=== PATIENT | male | born 1965 | race Caucasian/White ===

== ENCOUNTER → 2018-08-25 10:27 | Outpatient (CLI) | payer OTHER, SELFPAY ==
[2018-08-25 12:11] LABS: Alanine Aminotransferase 35 IU/L (21-72); Albumin 4.3 g/dL (3.5-5.0); Albumin Globulin Ratio 1.4 (1.0-2.8); Alkaline Phosphatase 46 U/L (38-126); Aspartate Aminotransferase 25 IU/L (17-59); BUN Creatinine Ratio 22.5 (6-22); Bilirubin Total 0.6 mg/dL (0.2-1.3); Blood Urea Nitrogen 18 mg/dL (9-20); Calcium 9.3 mg/dL (8.4-10.2); Carbon Dioxide 24 mmol/L (22-32); Chloride 107 mmol/L (98-107); Cholesterol 162 mg/dL (140-199); Estimated Glomerular Filt Rate > 60.0 mL/min (>60); Glucose 89 mg/dL (70-100); HDL Cholesterol 35 mg/dL (40-60); HEMOLYSIS < 15 (0-50); LDL Cholesterol Calculated 93 mg/dL (<100); Potassium 3.9 mmol/L (3.4-5.1); Sodium 141 mmol/L (137-145); Total Protein 7.3 g/dL (6.3-8.2); Triglycerides 170 mg/dL (35-150)
[2018-08-25 12:36] LABS: Thyroid Stimulating Hormone 0.94 uIU/mL (0.47-4.68)
[2018-08-25 12:40] LABS: Prostate Specific Antigen Scrn 1.17 ng/mL (0.1-4.0)
[2018-08-28 16:27] LABS: Testosterone Free 44.8 pg/mL (35.0-155.0); Testosterone Total 261 ng/dL (250-1100)
== END ==
PROVIDERS: PCP Acupuncturist; Visit Provider Acupuncturist
DX: Z00.00 Encounter for general adult medical examination without abnormal findings (principal); Z12.5 Encounter for screening for malignant neoplasm of prostate
CPT/HCPCS: 36415; 80053; 80061; 83735; 84402; 84403; 84443; G0103

== ENCOUNTER → 2018-12-03 12:17 | Outpatient (CLI) | payer OTHER, SELFPAY | PROVIDERS: Family Provider Acupuncturist; PCP Acupuncturist; Visit Provider Acupuncturist | DX: E29.1 Testicular hypofunction (principal) | CPT/HCPCS: 36415; 84403 ==

== ENCOUNTER 2019-11-29 21:25 | Emergency (ER) | payer OTHER, SELFPAY ==
--- NOTE | 2019-11-29 21:28 | DI.RAD.S_ITS ---
PROCEDURE: XR FOOT LT MIN 3V INDICATIONS: Stepped on nail, eval for fracture/foreign body TECHNIQUE: Pre-views of the foot were acquired. COMPARISON: None. FINDINGS: Bones: No fractures or dislocations. No suspicious bony lesions. Soft tissues: No tibiotalar joint effusion. Achilles tendon appears normal. IMPRESSION: No gross acute left foot fracture or dislocation. No radiopaque foreign body is seen. Dictated by: Yimi Becker M.D. on 11/29/2019 at 21:41 Approved by: Yimi Becker M.D. on 11/29/2019 at 21:46
[2019-11-29 21:29] VITALS: BP 142/90; PULSE 78; RESP 20; TEMP 36.8; O2SAT 97
[2019-11-29] MEDS: TET,DIPH,PERTUSS(ACELL),VAC/PF 0.5 ML SYRINGE IM (21:41)
--- NOTE | 2019-11-29 21:41 | ED_ITS ---
HPI - Wound/Laceration General Chief Complaint: Wound/Laceration Stated Complaint: stepped on nail with left foot Time Seen by Provider: 11/29/19 21:28 Source: patient Mode of arrival: Ambulatory Limitations: no limitations History of Present Illness HPI narrative: 53-year-old male here for evaluation of a wound that he sustained when he stepped on a nail with his left foot. He was wearing tennis shoes and socks at the time. He did try to wash it out and tried to ?make it bleed? prior to arrival. He does not know when his last tetanus shot was. Has had pain with walking. Related Data Previous Rx's Medication Instructions Recorded cephalexin [Keflex] 500 mg PO QID 5 Days #20 cap 11/29/19 Allergies Allergy/AdvReac Type Severity Reaction Status Date / Time No Known Drug Allergies Allergy Verified 11/29/19 21:52 Review of Systems Constitutional Constitutional: Denies fever(s) Musculoskeletal Musculoskeletal: Denies tingling Comments: Left foot pain Integumentary/Breasts Comments: Puncture wound vital left foot Neurologic Neurologic: Denies tingling and Denies paresthesias Hematologic/Lymphatic Hematologic/Lymphatic: Denies easy bleeding and Denies easy bruising Patient History Medical History Healthy adult (Acute) Social History marital status: Exam Initial Vital Signs Initial Vital Signs: Vital Signs Temperature 98.3 F 11/29/19 21:29 Pulse Rate 78 11/29/19 21:29 Respiratory Rate 20 11/29/19 21:29 Blood Pressure 142/90 H 11/29/19 21:29 Pulse Oximetry 97 11/29/19 21:29 Const General: cooperative and healthy appearing Cardio Pulses: dorsalis pedis present on the left Skin Other: Patient with 1 very small puncture wound located just proximal to the MTP joint of the 4th toe. No active bleeding. Neuro Sensory Exam: no sensory deficits noted Extrem Other: Left foot unremarkable except for puncture wound to bottom of left foot. Course Orders Ordered: ED Orders 11/29/19 21:28 XR foot LT min 3V Stat Discontinued Medications Cephalexin HCl (Keflex) 500 mg PO NOW ONE Stop: 11/29/19 21:47 Diphtheria/Tetanus/Acell Pertussis (Adacel) 0.5 ml IM .ONCE ONE Stop: 11/29/19 21:29 Last Admin: 11/29/19 21:41 Dose: 0.5 ml Documented by: CHRISTOPHER Vital Signs Vital signs: Vital Signs - 8 hr 11/29/19 21:29 Temperature 98.3 F Pulse Rate 78 Respiratory Rate 20 Blood Pressure 142/90 H Pulse Oximetry 97 MDM - Wound/Laceration Imaging Data Extremity x-ray #1: Radiologist's Impression: [address] [address] XRay Report Signed Patient: Chavo Frausto [facility]#: [id number] : 1965Acct:[id number] Age/Sex: 53 / MDate of Service: 11/29/19 Loc: ED Accession Number: [id number] Procedure: XR foot LT min 3V Ordering Provider: Josue Welch D.O. PROCEDURE: XR FOOT LT MIN 3V INDICATIONS: Stepped on nail, eval for fracture/foreign body TECHNIQUE: Pre-views of the foot were acquired. COMPARISON: None. FINDINGS: Bones: No fractures or dislocations. No suspicious bony lesions. Soft tissues: No tibiotalar joint effusion. Achilles tendon appears normal. IMPRESSION: No gross acute left foot fracture or dislocation. No radiopaque foreign body is seen. Dictated by: Yimi Becker M.D. on 11/29/2019 at 21:41 Approved by: Yimi Becker M.D. on 11/29/2019 at 21:46 [facility] Narrative Medical decision making narrative: Neurovascular intact, tetanus was updated, no fractures or foreign bodies noted on x-ray. Given the nature of the injury the fact that it went through his shoe and sock and was a puncture wound will start on antibiotics. First dose was given in the ER. Remainder of the course was electronically transmitted to the pharmacy of his choice. He was given care instructions and return precautions. He expressed understanding and agreement. Discharge Plan Departure Patient Disposition: Home Clinical Impression: Puncture wound of foot, left Qualifiers: Encounter type: initial encounter Qualified Code(s): S91.332A - Puncture wound without foreign body, left foot, initial encounter Instructions: DI for Puncture Wound Activity Restrictions/Additional Instructions: Your tetanus was updated this evening. You were given your 1st dose of antibiotics. The remainder of the course of antibiotics was electronically transmitted to [facility]. You can shower like normal. You can walk like normal. Return to the emergency department for any new or worsening symptoms Prescriptions: New cephalexin [Keflex] 500 mg capsule 500 mg PO QID 5 Days Qty: 20 RF: 0 Referrals: Melissa Jimenez ND [Primary Care Provider] -
[2019-11-29] MEDS: cephALEXin 250 MG CAPSULE 500 MG PO (21:52)
== END 2019-11-29 22:15 | disposition home or self-care (01) ==
PROVIDERS: Emergency Provider Emergency Medicine; Family Provider Acupuncturist; PCP Acupuncturist
DX: S91.332A Puncture wound without foreign body, left foot, initial encounter (principal); W22.8XXA Striking against or struck by other objects, initial encounter; Z23 Encounter for immunization
CPT/HCPCS: 73630; 90471; 99283; 99284; 90715

== ENCOUNTER → 2020-06-07 08:23 | Outpatient (CLI) | payer OTHER, SELFPAY ==
[2020-06-07 09:29] LABS: Add Manual Diff / Slide Review NO; Basophils Absolute Auto 100 /uL (0-100); Basophils Percent Auto 1.2 % (0-2); Eosinophils Absolute Auto 100 /uL (0-450); Eosinophils Percent Auto 2.2 % (2-4); Hematocrit 43.3 % (41-53); Hemoglobin 14.9 g/dL (13.5-17.5); Lymphocytes Absolute Auto 1900 /uL (1100-4500); Lymphocytes Percent Auto 32.1 % (25-40); Mean Corpuscular HGB Conc 34.4 % (30-36); Mean Corpuscular Volume 87.2 fL (80-100); Monocytes Absolute Auto 400 /uL (0-900); Neutrophils Absolute Auto 3300 /uL (1500-7000); Neutrophils Percent Auto 57.5 % (50-75); Platelet Count 143 X10^3/uL (150-400); Red Blood Cell Count 4.97 X10^6/uL (4.5-5.9); Red Cell Distribution Width 13.7 % (11.6-14.8); White Blood Cell Count 5.8 X10^3/uL (4.5-11.0)
[2020-06-07 10:26] LABS: Alanine Aminotransferase 30 IU/L (<50); Albumin 4.5 g/dL (3.5-5.0); Albumin Globulin Ratio 1.7 (1.0-2.8); Alkaline Phosphatase 44 U/L (38-126); Aspartate Aminotransferase 25 IU/L (17-59); Bilirubin Total 0.9 mg/dL (0.2-1.3); Blood Urea Nitrogen 20 mg/dL (9-20); Calcium 9.5 mg/dL (8.4-10.2); Carbon Dioxide 29 mmol/L (22-32); Chloride 104 mmol/L (98-107); Cholesterol 205 mg/dL (140-199); Estimated Glomerular Filt Rate > 60.0 mL/min (>60); Globulin 2.6 g/dL (1.7-4.1); Glucose 98 mg/dL (70-100); HDL Cholesterol 44 mg/dL (40-60); HEMOLYSIS < 15 (0-50); LDL Cholesterol Calculated 140 mg/dL (<100); Potassium 4.5 mmol/L (3.4-5.1); Sodium 138 mmol/L (137-145); Total Protein 7.1 g/dL (6.3-8.2); Triglycerides 107 mg/dL (35-150)
[2020-06-07 10:42] LABS: Thyroid Stimulating Hormone 1.43 uIU/mL (0.47-4.68)
[2020-06-07 10:55] LABS: Prostate Specific Antigen Scrn 1.29 ng/mL (0.1-4.0)
[2020-06-07 10:57] LABS: Testosterone > 2160 ng/dL (71.8-623)
== END ==
PROVIDERS: Family Provider Acupuncturist; PCP Acupuncturist; Referring Provider Acupuncturist; Visit Provider Acupuncturist
DX: E29.1 Testicular hypofunction (principal)
CPT/HCPCS: 36415; 80053; 80061; 84403; 84443; 85025; G0103

== ENCOUNTER → 2020-08-12 12:07 | Outpatient (CLI) | payer OTHER, SELFPAY ==
[2020-08-12] MEDS: COVID-19 VACC(MODERNA-1)/PF 100 MCG/0.5 ML VIAL IM (12:13)
== END ==
PROVIDERS: Family Provider Acupuncturist; PCP Acupuncturist; Visit Provider Internal Medicine
DX: Z23 Encounter for immunization (principal)
CPT/HCPCS: 0011A; 91301

== ENCOUNTER → 2020-09-09 11:59 | Outpatient (CLI) | payer OTHER, SELFPAY ==
[2020-09-09] MEDS: COVID-19 VACC #2, MRNA(MOD) 100 MCG/0.5 ML VIAL IM (12:02)
== END ==
PROVIDERS: Family Provider Acupuncturist; PCP Acupuncturist; Visit Provider Internal Medicine
DX: Z23 Encounter for immunization (principal)
CPT/HCPCS: 0012A; 91301

== ENCOUNTER → 2020-09-14 08:16 | Outpatient (CLI) | payer OTHER, SELFPAY ==
[2020-09-14 09:42] LABS: Hematocrit 42.5 % (41-53); Hemoglobin 14.8 g/dL (13.5-17.5); Mean Corpuscular HGB Conc 34.7 % (30-36); Mean Corpuscular Volume 86.2 fL (80-100); Platelet Count 163 X10^3/uL (150-400); Red Blood Cell Count 4.93 X10^6/uL (4.5-5.9); Red Cell Distribution Width 13.1 % (11.6-14.8); White Blood Cell Count 5.6 X10^3/uL (4.5-11.0)
[2020-09-14 10:32] LABS: Testosterone 259 ng/dL (71.8-623)
== END ==
PROVIDERS: Family Provider Acupuncturist; PCP Acupuncturist; Referring Provider Acupuncturist; Visit Provider Acupuncturist
DX: E29.1 Testicular hypofunction (principal)
CPT/HCPCS: 36415; 84403; 85027

== ENCOUNTER → 2020-09-29 12:18 | Outpatient (CLI) | payer OTHER, SELFPAY ==
[2020-09-29 13:04] LABS: Reticulocyte Count, Percent 0.9 % (0.87-2.60)
[2020-09-29 13:14] LABS: Add Manual Diff / Slide Review NO; Basophils Absolute Auto 100 /uL (0-100); Basophils Percent Auto 1.4 % (0-2); Eosinophils Absolute Auto 300 /uL (0-450); Eosinophils Percent Auto 6.2 % (2-4); Hematocrit 42.9 % (41-53); Hemoglobin 14.7 g/dL (13.5-17.5); Lymphocytes Absolute Auto 1700 /uL (1100-4500); Lymphocytes Percent Auto 32.7 % (25-40); Mean Corpuscular HGB Conc 34.3 % (30-36); Mean Corpuscular Hemoglobin 29.6 PG (26-34); Mean Corpuscular Volume 86.5 fL (80-100); Monocytes Absolute Auto 400 /uL (0-900); Monocytes Percent Auto 7.9 % (3-14); Neutrophils Absolute Auto 2700 /uL (1500-7000); Neutrophils Percent Auto 51.8 % (50-75); Platelet Count 170 X10^3/uL (150-400); Red Blood Cell Count 4.96 X10^6/uL (4.5-5.9); Red Cell Distribution Width 12.9 % (11.6-14.8); White Blood Cell Count 5.2 X10^3/uL (4.5-11.0)
[2020-09-29 13:19] LABS: Alanine Aminotransferase 471 IU/L (<50); Albumin 4.2 g/dL (3.5-5.0); Albumin Globulin Ratio 1.3 (1.0-2.8); Alkaline Phosphatase 123 U/L (38-126); Aspartate Aminotransferase 138 IU/L (17-59); Bilirubin Conjugated 2.2 md/dL (0.0-0.3); Bilirubin Total 5.2 mg/dL (0.2-1.3); Bilirubin Unconjugated 1.3 mg/dL (0.0-1.1); Globulin 3.2 g/dL (1.7-4.1); HEMOLYSIS < 15 (0-50); Total Protein 7.4 g/dL (6.3-8.2)
[2020-09-30 09:23] LABS: Alanine Aminotransferase 427 IU/L (<50); Albumin 4.4 g/dL (3.5-5.0); Albumin Globulin Ratio 1.6 (1.0-2.8); Alkaline Phosphatase 133 U/L (38-126); Aspartate Aminotransferase 152 IU/L (17-59); Bilirubin Conjugated 0.9 md/dL (0.0-0.3); Bilirubin Unconjugated 1.4 mg/dL (0.0-1.1); Globulin 2.7 g/dL (1.7-4.1); HEMOLYSIS < 15 (0-50); Total Protein 7.1 g/dL (6.3-8.2)
[2020-09-30 10:34] LABS: Hepatitis B Surface Antigen NEGATIVE s/c (NEGATIVE)
[2020-09-30 10:51] LABS: Hep C Virus Ab w/Reflex Quant NEGATIVE s/c (NEGATIVE)
[2020-10-01 02:15] LABS: Hepatitis A Antibody IgM Negative (Negative)
[2020-10-01 07:14] LABS: Hepatitis B Core IgM Negative (Negative)
== END ==
PROVIDERS: Family Provider Acupuncturist; PCP Acupuncturist; Referring Provider Acupuncturist; Visit Provider Acupuncturist
DX: R17 Unspecified jaundice (principal)
CPT/HCPCS: 36415; 80076; 85025; 85045; 86705; 86709; 86803; 87340

== ENCOUNTER → 2020-10-08 08:04 | Outpatient (CLI) | payer OTHER, SELFPAY ==
[2020-10-08 09:42] LABS: Alanine Aminotransferase 147 IU/L (<50); Albumin 4.1 g/dL (3.5-5.0); Albumin Globulin Ratio 1.5 (1.0-2.8); Alkaline Phosphatase 96 U/L (38-126); Aspartate Aminotransferase 45 IU/L (17-59); Bilirubin Total 1.3 mg/dL (0.2-1.3); Bilirubin Unconjugated 0.8 mg/dL (0.0-1.1); Globulin 2.7 g/dL (1.7-4.1); HEMOLYSIS < 15 (0-50); Total Protein 6.8 g/dL (6.3-8.2)
[2020-10-09 10:07] LABS: Immunoglobulin G, Quantitative 969 mg/dL (603-1613)
[2020-10-11 09:39] LABS: Smooth Muscle Antibody 8 Units (0-19)
[2020-10-11 15:08] LABS: ANA Screen, IFA Negative (.)
== END ==
PROVIDERS: Family Provider Acupuncturist; PCP Acupuncturist; Referring Provider Acupuncturist; Visit Provider Acupuncturist
DX: R94.5 Abnormal results of liver function studies (principal)
CPT/HCPCS: 36415; 80076; 82784; 83516; 86038

== ENCOUNTER → 2021-12-28 07:45 | Outpatient (CLI) | payer OTHER, SELFPAY ==
[2021-12-28 08:49] LABS: Add Manual Diff / Slide Review NO; Basophils Absolute Auto 100 /uL (0-100); Basophils Percent Auto 1.1 % (0-2); Eosinophils Absolute Auto 100 /uL (0-450); Eosinophils Percent Auto 1.9 % (2-4); Hematocrit 41.2 % (41-53); Hemoglobin 14.6 g/dL (13.5-17.5); Lymphocytes Absolute Auto 1500 /uL (1100-4500); Lymphocytes Percent Auto 25.3 % (25-40); Mean Corpuscular HGB Conc 35.3 % (30-36); Monocytes Absolute Auto 400 /uL (0-900); Neutrophils Absolute Auto 3900 /uL (1500-7000); Neutrophils Percent Auto 65.7 % (50-75); Platelet Count 169 X10^3/uL (150-400); Red Blood Cell Count 4.85 X10^6/uL (4.5-5.9); Red Cell Distribution Width 13.1 % (11.6-14.8); White Blood Cell Count 5.9 X10^3/uL (4.5-11.0)
[2021-12-28 09:15] LABS: Magnesium 2.2 mg/dL (1.6-2.3)
[2021-12-28 09:17] LABS: Alanine Aminotransferase 22 IU/L (<50); Albumin 4.4 g/dL (3.5-5.0); Albumin Globulin Ratio 1.6 (1.0-2.8); Alkaline Phosphatase 43 U/L (38-126); Aspartate Aminotransferase 23 IU/L (17-59); BUN Creatinine Ratio 21.4 (6-22); Bilirubin Total 0.9 mg/dL (0.2-1.3); Blood Urea Nitrogen 18 mg/dL (9-20); Carbon Dioxide 24 mmol/L (22-32); Chloride 107 mmol/L (98-107); Cholesterol 182 mg/dL (140-199); Estimated Glomerular Filt Rate > 60 mL/min (>60); Globulin 2.8 g/dL (1.7-4.1); Glucose 104 mg/dL (70-100); HDL Cholesterol 39 mg/dL (40-60); HEMOLYSIS < 15 (0-50); LDL Cholesterol Calculated 125 mg/dL (<100); Potassium 4.2 mmol/L (3.4-5.1); Sodium 140 mmol/L (137-145); Total Protein 7.2 g/dL (6.3-8.2); Triglycerides 91 mg/dL (35-150)
[2021-12-28 09:40] LABS: Thyroid Stimulating Hormone 1.15 uIU/mL (0.47-4.68)
[2021-12-28 09:45] LABS: TSH w/ Reflex to FT4 1.16 uIU/mL (0.47-4.68)
[2021-12-28 09:50] LABS: Ferritin 224 ng/mL (18-464); Testosterone 287 ng/dL (71.8-623)
[2022-01-01 15:29] LABS: Prostate Specific Antigen 0.963 ng/mL (0.10-4.00)
== END ==
PROVIDERS: Family Provider Acupuncturist; PCP Acupuncturist; Referring Provider Internal Medicine Cardiovascular Disease; Visit Provider Internal Medicine Cardiovascular Disease
DX: Z00.00 Encounter for general adult medical examination without abnormal findings (principal); Z86.73 Personal history of transient ischemic attack (TIA), and cerebral infarction without residual deficits
CPT/HCPCS: 36415; 80053; 80061; 82728; 83735; 84153; 84403; 84443; 85025

== ENCOUNTER → 2022-02-05 06:31 | Outpatient (CLI) | payer OTHER, SELFPAY ==
--- NOTE | 2022-02-05 06:32 | DI.ECHO.S_ITS ---
[place] [facility]---------+ [facility] +---------+ : : [address] : : : : [id number] : : : : Phone: [phone]+ Echocardiogram Report + + :Name: RISHABH PARKINSON Study Date: 02/05/2022 Height: 72 in : :[facility] ReadingLocation: Weight: 225 lb : : Gender: Male BSA: 2.2 m2 : :: 1965 Age: 56 yrs BP: 139/88 mmHg: :Reason For Study: ASD repair : :Ordering Physician: PANKAJ, : :LESA Performed By: Jacobo Schroeder : :Referring: LESA BECKFORD : + + Interpretation Summary 1) Normal left ventricular thickness, size, wall motion, and systolic function (EF 55-60%). 2) Normal right ventricular size and function. 3) No significant valvular abnormalities. 4) Compared to the Echo done 03/16/2014, no significant change. Procedure: A two-dimensional transthoracic echocardiogram with color flow and Doppler was performed. The study quality was technically adequate. Comparison is made with the echocardiogram of 03/16/2014. The patient was in normal sinus rhythm during the exam. Left Ventricle: The left ventricle is normal in size and wall thickness. Left ventricular systolic function is normal. The ejection fraction is estimated to be 55-60%. There are no focal wall motion abnormalities. Diastolic parameters suggest probable normal left ventricular diastolic function and normal filling pressures. Right Ventricle: The right ventricle is normal in size and function. Atria: Both atria are normal in size. The interatrial septum grossly appears intact with no obvious evidence for an atrial septal defect. Mitral Valve: The mitral valve is normal in structure and function. There is no mitral regurgitation noted. Aortic Valve: The aortic valve is normal in structure and function. There is no aortic valve stenosis. No aortic regurgitation is present. Tricuspid Valve: The tricuspid valve is normal in structure and function. No tricuspid regurgitation. Pulmonary artery pressures cannot be estimated because of the lack of a measurable TR jet velocity. Pulmonic Valve: The pulmonic valve is normal in structure and function. There is no pulmonic valvular regurgitation. Great Vessels: The aortic root is normal size. The dimensions of the ascending aorta are normal. The IVC is dilated (diameter is greater than 2.1 cm) yet it collapses greater than 50% with a sniff. This suggests a right atrial pressure of 8 mm Hg. Pericardium/ Pleura There is no pericardial effusion. There is no pleural effusion. MMode/2D Measurements & Calculations LVIDd: 5.0 cm LVOT diam: 2.4 cm LVIDs: 3.6 cm Ao root diam: 3.7 cm FS: 28.0 % asc Aorta Diam: 3.3 cm IVSd: 1.0 cm LVPWd: 1.0 cm LV castellano. diameter/BSA (cm/m^2): 2.2 LV sys. diameter/BSA (cm/m^2): 1.6 LA dimension: 3.2 cm RA long axis: 5.1 cm LA A2 area: 17.3 cm2 IVC diam: 2.3 cm LA A4 area: 15.9 cm2 LA length (vol): 5.2 cm LA vol: 44.9 ml LA vol index: 20.0 ml/m2 TAPSE_phl: 2.5 cm Doppler Measurements & Calculations Ao V2 max: 86.1 cm/sec LVOT Max Augie: 75.1 cm/sec Ao V2 mean: 65.7 cm/sec LV V1 max P.3 mmHg Ao max P.0 mmHg LV V1 VTI: 17.4 cm Ao mean P.0 mmHg AKHIL(I,D): 3.7 cm2 Ao V2 VTI: 21.2 cm AKHIL(V,D): 3.9 cm2 sev ratio: 0.82 AKHIL indexed to BSA (cm^2/m^2): 1.7 MV E max augie: 88.3 cm/sec SV(LVOT): 78.7 ml MV A max augie: 57.8 cm/sec MV E/A: 1.5 Med Peak E' Augie: 9.4 cm/sec E/E' med: 9.4 Lat Peak E' Augie: 15.0 cm/sec E/E' lat: 5.9 E/e' average: 7.7 MV dec time: 0.18 sec AV VR_phl: 0.87 MV P1/2t-pr_phl: 53.0 msec AKHIL(VTI)/BSA_phl: 1.7 Reading Physician:02:42 PM
== END ==
PROVIDERS: Family Provider Acupuncturist; PCP Acupuncturist; Referring Provider Internal Medicine Cardiovascular Disease; Visit Provider Internal Medicine Cardiovascular Disease
DX: Z09 Encounter for follow-up examination after completed treatment for conditions other than malignant neoplasm (principal); Z87.74 Personal history of (corrected) congenital malformations of heart and circulatory system
CPT/HCPCS: 93306

== ENCOUNTER → 2024-07-31 08:08 | Outpatient (CLI) | payer OTHER, SELFPAY ==
[2024-07-31 08:49] LABS: Add Manual Diff / Slide Review NO; Basophils Absolute Auto 100 /uL (0-100); Basophils Percent Auto 1.9 % (0-2); Eosinophils Absolute Auto 300 /uL (0-450); Eosinophils Percent Auto 5.4 % (2-4); Hematocrit 42.4 % (41-53); Hemoglobin 14.4 g/dL (13.5-17.5); Lymphocytes Absolute Auto 1600 /uL (1100-4500); Lymphocytes Percent Auto 27.8 % (25-40); Mean Corpuscular HGB Conc 33.9 % (30-36); Mean Corpuscular Volume 88.5 fL (80-100); Monocytes Absolute Auto 400 /uL (0-900); Monocytes Percent Auto 6.3 % (3-14); Neutrophils Absolute Auto 3400 /uL (1500-7000); Neutrophils Percent Auto 58.6 % (50-75); Platelet Count 143 X10^3/uL (150-400); Red Blood Cell Count 4.79 X10^6/uL (4.5-5.9); Red Cell Distribution Width 13.3 % (11.6-14.8); White Blood Cell Count 5.7 X10^3/uL (4.5-11.0)
[2024-07-31 09:02] LABS: Alanine Aminotransferase 35 IU/L (<50); Albumin 4.1 g/dL (3.5-5.0); Albumin Globulin Ratio 1.8 (1.0-2.8); Alkaline Phosphatase 43 U/L (38-126); Aspartate Aminotransferase 25 IU/L (17-59); BUN Creatinine Ratio 17.3 (6-22); Bilirubin Total 0.8 mg/dL (0.2-1.3); Blood Urea Nitrogen 17 mg/dL (9-20); Calcium 9.2 mg/dL (8.4-10.2); Carbon Dioxide 22 mmol/L (22-32); Chloride 110 mmol/L (98-107); Cholesterol 173 mg/dL (140-199); Estimated Glomerular Filt Rate > 60 mL/min (>60); Globulin 2.3 g/dL (1.7-4.1); Glucose 106 mg/dL (70-100); HDL Cholesterol 43 mg/dL (40-60); HEMOLYSIS < 15 (0-50); LDL Cholesterol Calculated 117 mg/dL (<100); Potassium 4.2 mmol/L (3.4-5.1); Sodium 140 mmol/L (137-145); Total Protein 6.4 g/dL (6.3-8.2); Triglycerides 66 mg/dL (35-150)
[2024-07-31 09:32] LABS: TSH w/ Reflex to FT4 1.26 uIU/mL (0.47-4.68)
== END ==
PROVIDERS: Family Provider Acupuncturist; PCP Family Medicine; Referring Provider Family Medicine; Visit Provider Family Medicine
DX: R00.0 Tachycardia, unspecified (principal); Z68.31 Body mass index [BMI] 31.0-31.9, adult; Z76.89 Persons encountering health services in other specified circumstances
CPT/HCPCS: 36415; 80053; 80061; 84443; 85025

== ENCOUNTER 2024-09-07 10:43 | Day surgery (SDC) | payer OTHER, SELFPAY ==
[2024-09-07] MEDS: LACTATED RINGERS 1,000 ML 42 ML IV (11:51)
[2024-09-07 11:52] VITALS: BP 118/73; PULSE 59; RESP 14; TEMP 37.1; O2SAT 98
--- NOTE | 2024-09-07 12:07 | P.HP_ITS ---
History of Present Illness History of Present Illness Date Patient Seen: 09/07/24 Time Patient Seen: 12:07 Date of Onset of Symptoms: 09/07/24 Chief complaint: Screening Colonoscopy Narrative: 58-year-old white male presents for screening colonoscopy. No issues. [facility] Medical History (Updated 09/07/24 @ 12:08 by Jose L Hayward MD) Colon cancer screening (09/07/24) Stroke (~1997) Mumps Chicken pox Irritable bowel syndrome (~1984) Tachycardia Healthy adult Surgical History History of repair of atrial septal defect (~1997) Social History marital status: Smoking Status: Never smoker Meds Home Medications and Allergies Home Medications Medication Instructions Recorded Confirmed Type sodium,potassium,mag sulfates 17.5 See Rx Instructions PO .COMPLEX 08/04/24 Rx gram-3.13 gram-1.6 gram oral soln #354 mL (Suprep Bowel Prep Kit) Allergies Allergy/AdvReac Type Severity Reaction Status Date / Time Penicillins Allergy Intermediate Verified 07/30/24 14:43 Review of Systems Review of Systems ROS: Yes All systems reviewed with the patient and are negative except as otherwise documented Exam Vital Signs (past 8 hours): - 09/07/24 11:52 Temperature 98.7 F Pulse Rate 59 L Respiratory Rate 14 Blood Pressure 118/73 Pulse Oximetry 98 Oxygen Delivery Method Room Air Oxygen Delivery Method Room Air Narrative Exam Narrative: Gen: NAD, sitting comfortably in bed, appears well HEENT: Sclera are anicteric, head is normocephalic and atraumatic, trachea is midline. CV: RRR, no JVD Resp: clear to auscultation bilaterally, equal chest wall movement bilaterally Abd: soft, nontender, normoactive bowel sounds Ext: no edema, full range of motion Neuro: Cranial nerves II-XII grossly intact, no focal deficits Skin: No erythema or ecchymosis Assessment & Plan Assessment and plan (1) Colon cancer screening: Status: Acute Assessment & Plan narrative: Patient presents for colonoscopy Risks, benefits, alternatives to colonoscopy explained, including but not limited to bowel perforation or other serious complication requiring surgery at less than 1 in 5000 colonoscopies, abdominal pain, cramping or bleeding and less than 1% of colonoscopies, and the chances that we find a diagnosis that would require further intervention of about 2%. Patient agrees to proceed. Time-Based Coding :: [TOTAL MINUTES] spent with patient and on the chart (including review of chart, obtaining history, exam, reviewing outside data, placing orders, documenting exam and treatment plan, and counseling patient) on [DATE]. PROFEE Reel Hooker Document charge(s): No
--- NOTE | 2024-09-07 12:30 | P.OP.COLON_ITS ---
Operative Date/Time/Diagnoses Date of procedure: 09/07/24 Time of procedure: 12:30 Pre-op diagnosis: Colon screening Post-op diagnosis: same Procedure & Clinicians Study performed: Colonoscopy Same procedure as scheduled: Yes Indications: Colon screening Surgeon: Jose L Hayward Procedure Notes SCOAP/Timeout: Performed Procedure in detail: Time-out was performed. Mac was induced. Patient was placed in left lateral d ecubitus position. The perineum was inspected without any gross abnormality. Lubricated pediatric colonoscope was inserted and advanced to the cecum. The terminal ileum was intubated. The colonoscope was withdrawn slowly inspecting the circumference of the colon. Very small polyps may have been missed, prep quality was adequate. Retroflexed view of the rectum showed small, non prolapsed nonbleeding internal hemorrhoids. The scope was withdrawn the patient was taken to PACU in good condition. Scope withdrawal time: 8 Sedation minutes: 13 Findings: internal hemorrhoids Specimen(s): none sent Complications: none Post-procedure Recommendations: Colonoscopy in 10 years Follow up: as needed Disposition: PACU
[2024-09-07 12:33] VITALS: BP 90/48; PULSE 60; RESP 13; TEMP 37.1; O2SAT 98
[2024-09-07 12:38] VITALS: BP 101/46; PULSE 72; RESP 15; TEMP 36.9; O2SAT 98
[2024-09-07 12:43] VITALS: BP 115/70; PULSE 77; RESP 15; TEMP 37; O2SAT 97
== END 2024-09-07 13:00 | disposition home or self-care (01) ==
PROVIDERS: Family Provider Acupuncturist; PCP Family Medicine; Referring Provider Surgery; Visit Provider Surgery
PROC: 0DJD8ZZ Inspection of Lower Intestinal Tract, Via Natural or Artificial Opening Endoscopic (ICD-10-PCS; CPT 45378; principal; 2024-09-07 12:15)
DX: Z12.11 Encounter for screening for malignant neoplasm of colon (principal); K64.8 Other hemorrhoids
CPT/HCPCS: 45378; J2405; J2704